=== PATIENT | male | born 1950 | race Hispanic/Latino ===

== ENCOUNTER 2022-10-20 14:06 | Observation (INO) | payer MEDICARE ==
[2022-10-20] VITALS (21 sets, daily range): BP systolic 117–177; BP diastolic 72–93
[~2022-10-20] VITALS: Ht 172.7 cm; Wt 77.1 kg
[2022-10-20] MEDS ORDERED: PROPOFOL 10 MG/ML 20ML VIAL IV ONE ×2 (14:53→16:57)
[2022-10-20] MEDS ORDERED: 0.9%NACL 1000ML 1,000 ML IV SCH (15:30)
[2022-10-20] MEDS ORDERED: MORPHINE 4 MG SYG IVP ONE (15:30)
[2022-10-20] MEDS: PROPOFOL 10 MG/ML 20ML VIAL IV SCH (15:32)
[2022-10-20 15:44] LABS: BASOPHILS % (AUTO) 0.5 % (0.0-5.0); HEMATOCRIT 46.3 % (42-54); LYMPHOCYTES % (AUTO) 17.9 % (21.0-51.0); MEAN CORPUSCULAR VOLUME 90.8 fL (79-99); MONOCYTES % (AUTO) 5.2 % (3.0-13.0); NEUTROPHILS % (AUTO) 74.5 % (40.0-77.0); PLATELET COUNT (AUTO) 182 K/uL (130-400); RED CELL DISTRIBUTION WIDTH 12.8 % (11.0-15.5); WHITE BLOOD COUNT (AUTO) 11.3 K/uL (4.8-10.8)
[2022-10-20 15:52] LABS: CREATININE 0.9 mg/dL (0.5-1.5); POTASSIUM 3.8 mmol/L (3.5-5.1)
[2022-10-20 15:54] LABS: INR 0.98 (0.85-1.15); PROTHROMBIN TIME 10.7 SEC (9.6-11.6)
[2022-10-20 15:55] LABS: PARTIAL THROMBOPLASTIN TIME 29.3 SEC (26.3-35.5)
[2022-10-20 16:01] LABS: TOTAL PROTEIN, SERUM 8.3 g/dL (6.0-8.3)
[2022-10-20] MEDS ORDERED: SUCCINYLCHOLINE CHLORIDE 20 MG/ML 10 ML VIAL ONE (16:57)
[2022-10-20] MEDS ORDERED: ROCURONIUM 10MG/1ML SYR 10 MG/ML ML ONE ×2 (16:57→18:17)
[2022-10-20] MEDS ORDERED: MIDAZOLAM HCL 1 MG/ML 2ML VIAL ONE (16:57)
[2022-10-20] MEDS ORDERED: EPHEDRINE SULFATE 50 MG/ML AMPULE ONE (17:50)
[2022-10-20] MEDS ORDERED: GLYCOPYRROLATE 1 MG/5 ML SYRINGE ONE (18:08)
[2022-10-20] MEDS ORDERED: PHENYLEPHRINE HCL 10 MG/ML 1ML VIAL IV ONE (18:11)
[2022-10-20] MEDS ORDERED: LIDOCAINE HCL 2% PF 20 ML JEL DISP.SYRIN MM ONE (19:32)
[2022-10-20] MEDS ORDERED: SUGAMMADEX SODIUM 200 MG/2 ML VIAL IV ONE (19:47)
[2022-10-20] MEDS: 0.9%NACL 1000ML 1,000 ML IV SCH (20:00)
[2022-10-20] MEDS ORDERED: HYDROCODONE/ACETAMINOPHEN 5/325 MG TAB PO PRN (20:00)
[2022-10-20] MEDS ORDERED: MEPERIDINE-PF 50 MG/ML SYG ONE (20:08)
[2022-10-20] MEDS ORDERED: LORAZEPAM 2 MG/ML 1 ML VIAL ONE ×2 (20:18→20:26)
[2022-10-20] MEDS: CEFTRIAXONE 1G VIAL IV SCH (20:46)
[2022-10-20] MEDS: METRONIDAZOLE 500 MG TABLET PO SCH (21:00)
[2022-10-20] MEDS ORDERED: PHARMACY COMMUNICATION MISC PRN (21:30)
[2022-10-20] MEDS ORDERED: THIAMINE HCL 100 MG, FOLIC ACID 1 MG, M.V.I. IV [ADULT] 10 ML in 0.9%NACL 1000ML 1,000 ML IV SCH (21:30)
[2022-10-20] MEDS ORDERED: CHLORDIAZEPOXIDE HCL 25 MG CAP PO PRN ×2 (21:30)
[2022-10-20] MEDS ORDERED: LORAZEPAM 2 MG/ML 1 ML VIAL IVP PRN ×2 (21:30)
[2022-10-20] MEDS ORDERED: NITROGLYCERIN 0.4 MG SL TAB SL PRN (22:00)
[2022-10-20] MEDS ORDERED: ACETAMINOPHEN 325 MG TAB PO PRN ×2 (22:00)
[2022-10-20] MEDS ORDERED: ONDANSETRON 4MG INJ IV PRN (22:00)
[2022-10-20] MEDS ORDERED: LATA2.5D14 OU (23:34)
[2022-10-20] MEDS ORDERED: BENZ-226 PO (23:34)
[2022-10-20] MEDS ORDERED: IBUP-2077 PO (23:34)
[2022-10-20] MEDS ORDERED: AMLO-257 PO (23:34)
[2022-10-20] MEDS ORDERED: SERT-439 PO (23:34)
[2022-10-20] MEDS ORDERED: DICL50TA9 PO (23:34)
[2022-10-20] MEDS ORDERED: MAGN400T7 PO (23:34)
[2022-10-20] MEDS ORDERED: GABA-529 PO (23:34)
[2022-10-20] MEDS ORDERED: TAMS-1 PO (23:34)
[2022-10-20] MEDS ORDERED: LORA10TA7 PO (23:34)
[2022-10-20] MEDS ORDERED: BUSP10TA3 PO (23:34)
[2022-10-20] MEDS ORDERED: PRAV40TA3 PO (23:34)
[2022-10-20 23:48] LABS: AMPHET/METH SCREEN,URINE NEGATIVE (NEGATIVE); BARBITURATE SCREEN, URINE NEGATIVE (NEGATIVE); BENZODIAZEPINES SCREEN,URINE NEGATIVE (NEGATIVE); CANNABINOID SCREEN,URINE POSITIVE (NEGATIVE); COCAINE SCREEN,URINE POSITIVE (NEGATIVE); OPIATE SCREEN,URINE NEGATIVE (NEGATIVE); PHENCYCLIDINE SCREEN,URINE NEGATIVE (NEGATIVE)
[2022-10-21] VITALS (8 sets, daily range): BP systolic 115–160; BP diastolic 65–79
[2022-10-21] MEDS ORDERED: HYDROXYZINE 25 MG TABLET PO PRN
[2022-10-21] MEDS: HEPARIN 5,000 UNIT VIAL SQ SCH ×4 (00:07→20:57)
[2022-10-21 05:18] LABS: BASOPHILS % (AUTO) 0.3 % (0.0-5.0); EOSINOPHILS % (AUTO) 0.4 % (0.0-8.0); HEMATOCRIT 40.1 % (42-54); LYMPHOCYTES % (AUTO) 16.4 % (21.0-51.0); MEAN CORPUSCULAR HEMOGLOBIN 30.3 pg (27.0-33.0); MEAN CORPUSCULAR HGB CONC 32.4 g/dL (32.0-36.0); MEAN CORPUSCULAR VOLUME 93.5 fL (79-99); MONOCYTES % (AUTO) 6.7 % (3.0-13.0); NEUTROPHILS % (AUTO) 75.9 % (40.0-77.0); PLATELET COUNT (AUTO) 156 K/uL (130-400); RED BLOOD CELL COUNT(AUTO) 4.29 MIL/uL (4.50-6.20); RED CELL DISTRIBUTION WIDTH 12.9 % (11.0-15.5); WHITE BLOOD COUNT (AUTO) 11.6 K/uL (4.8-10.8)
[2022-10-21 05:44] LABS: CREATININE 0.8 mg/dL (0.5-1.5); MAGNESIUM 1.8 mg/dL (1.80-2.40); PHOSPHORUS 3.3 mg/dL (2.5-4.9); POTASSIUM 3.7 mmol/L (3.5-5.1); TOTAL PROTEIN, SERUM 6.4 g/dL (6.0-8.3)
[2022-10-21] MEDS: 0.9%NACL 1000ML 1,000 ML IV SCH (06:00)
[2022-10-21 06:01] LABS: B-TYPE NATRIURETIC PEPTIDE 86 pg/mL (0-100)
[2022-10-21] MEDS ORDERED: THIAMINE HCL 100 MG, FOLIC ACID 1 MG, M.V.I. IV [ADULT] 10 ML in 0.9%NACL 1000ML 1,000 ML IV SCH (08:00)
[2022-10-21] MEDS: GABAPENTIN 300 MG CAPSULE PO SCH ×2 (08:36→20:56)
[2022-10-21] MEDS: BUSPIRONE HCL 5 MG TABLET PO SCH ×2 (08:36→20:56)
[2022-10-21] MEDS: FAMOTIDINE 20MG TAB PO SCH ×2 (08:36→20:56)
[2022-10-21] MEDS: AMLODIPINE 5 MG TAB PO SCH (08:43)
[2022-10-21] MEDS: METRONIDAZOLE 500 MG TABLET PO SCH ×3 (08:43→20:56)
[2022-10-21] MEDS: SERTRALINE HCL 50 MG TABLET PO SCH (08:43)
[2022-10-21] MEDS: CEFTRIAXONE 1G VIAL IV SCH (20:55)
[2022-10-22 04:46] VITALS: BP 146/86
[2022-10-22 08:00] VITALS: BP 140/78
[2022-10-22] MEDS: BUSPIRONE HCL 5 MG TABLET PO SCH (09:24)
[2022-10-22] MEDS: AMLODIPINE 5 MG TAB PO SCH (09:24)
[2022-10-22] MEDS: SERTRALINE HCL 50 MG TABLET PO SCH (09:24)
[2022-10-22] MEDS: HEPARIN 5,000 UNIT VIAL SQ SCH (09:31)
[2022-10-22] MEDS: METRONIDAZOLE 500 MG TABLET PO SCH (09:32)
[2022-10-22] MEDS: FAMOTIDINE 20MG TAB PO SCH (09:33)
[2022-10-22] MEDS: GABAPENTIN 300 MG CAPSULE PO SCH (09:35)
[2022-10-22 12:00] VITALS: BP_SYST 120; BP_SYST 140; BP_DIAS 70; BP_DIAS 78
== END 2022-10-22 12:47 | disposition home or self-care (01) ==
LOC: EDH 14:06 → EDHIP 15:23 → UNDOADMOB 15:23 → EDHIP 16:01 → 4BH 21:08
PROVIDERS: ADMIT Student in an Organized Health Care Education/Training Program; ATTEND Student in an Organized Health Care Education/Training Program
DX: T18.5XXA Foreign body in anus and rectum, initial encounter (principal); G93.40 Encephalopathy, unspecified; R00.0 Tachycardia, unspecified; I10 Essential (primary) hypertension; K57.30 Diverticulosis of large intestine without perforation or abscess without bleeding; K76.0 Fatty (change of) liver, not elsewhere classified; N13.30 Unspecified hydronephrosis; R33.9 Retention of urine, unspecified; E78.00 Pure hypercholesterolemia, unspecified; F19.10 Other psychoactive substance abuse, uncomplicated; F14.10 Cocaine abuse, uncomplicated; F17.210 Nicotine dependence, cigarettes, uncomplicated; Z90.49 Acquired absence of other specified parts of digestive tract; Z79.899 Other long term (current) drug therapy; Z98.890 Other specified postprocedural states
CPT/HCPCS: 45915; 96365; 96375 ×2; 84484; 80053 ×2; 80305; 85025 ×2; 85610; 85730; 86850; 86900; 86901; 36415 ×2; 74018; 71045; 74176; 99291; 93005; 96372 ×2; 96366; 96367; 83735; 84100; 83880; G0378 ×40; A4606; J3490 ×2; J0330; J7030; J0696 ×2; J2250; J2704 ×2; J2060 ×2; J2270; J1644 ×5; J2175; J2370; A4930; J3411